=== PATIENT | male | born 1975 | race Two or more races ===

== ENCOUNTER 2020-09-14 18:32 | Emergency (ER) | payer MEDICAID ==
[~2020-09-14] VITALS: Ht 172.7 cm; Wt 78.0 kg
[2020-09-14] MEDS ORDERED: BACITRACIN ZINC OINT UDPKT TOP ONE (19:15)
[2020-09-14] MEDS ORDERED: LIDOCAINE HCL/PF 1% 10 MG/ML 5ML VIAL IJ ONE (19:15)
[2020-09-14] MEDS ORDERED: TETANUS, DIPHTHERIA, PERTUSSIS VAC/PF 0.5ML (>7YR OLD) IM ONE (19:15)
[2020-09-14 19:45] VITALS: BP 157/64
[2020-09-14] MEDS ORDERED: IBUP-2029 MT (21:23)
[2020-09-14] MEDS ORDERED: AMOX-424 MT (21:23)
== END 2020-09-14 21:59 | disposition home or self-care (01) ==
LOC: ER 18:32
DX: S62.522B Displaced fracture of distal phalanx of left thumb, initial encounter for open fracture (principal); W27.0XXA Contact with workbench tool, initial encounter; Y93.89 Activity, other specified; Y92.89 Other specified places as the place of occurrence of the external cause
CPT/HCPCS: 12002; 73130; 99283